=== PATIENT | female | born 1990 | race Caucasian/White ===

== ENCOUNTER → 2016-12-24 | Outpatient (CLI) | payer OTHER ==
--- NOTE | 2016-12-25 06:17 | PAP/PSG TECHNICIAN REPORT ---
[facility] [employer] Polysomnogram Report Study name: None Report date: 12/25/2016 Study date: 12/24/2016 Referring Physician: DR. ALPA QUINTANA Name: MAGO HAWKINS Interpreting Physician: Abhinav Ruiz D.O. Date of : 1990 Roulette Dealer: Neena Palmer RPSGT. Sex: Female Age: 26 Study Type: PSG Weight: 151 lbs Height: 26 years, Height 5' 4" BMI: 25.92 Medications: NONE REPORTED Patient History 26 yr-old here for a baseline study. She has a history of daytime sleepiness, insomnia, and PTSD. Her [place] scale is 0; however, she stated that she feels tired all day even though she does not fall asleep. The test was started on room air. ETCO2 testing was not utilized during this study. Room 3 Parameters Monitored NPSG: E1-M2, E2-M1, Fp1-M2, Fp2-M1, F3-M2, F4-M2, F4-M1, C3-M2, C4-M2, C4-M1, O1-M2, O2-M2, O2-M1, T3-M2, T4-M1, P3-M2, P4-M1, CHIN1, CHIN2, HR, EKG, Legs, PFLOW, SNOR, FLOW, CFLOW, Tidal Volume, THOR, ABDO, SpO2, PLTH, CPRESS, ETCO2 Wave, ETCO2, pH Sleep Architecture Sleep Stages Time at Lights Off 10:10:29 PM STAGES Time (min.) TST (%) Time at Lights On 5:46:59 AM Wake 229.5 -- Total Recording Time (TRT) 424.50 min. N1 27.5 14 Total Sleep Period (TSP) 326.5 min. N2 111.5 57 Total Sleep Time (TST) 195.0min. N3 31.0 16 Awake Time 229.5 min. REM 25.0 13 Wake after Sleep Onset 163.5 min. Sleep Efficiency (SE) 46 % Sleep Onset Latency (RAINER) 98.0 min. Number of Stage 1 Shifts None Awakenings 17 Stage Changes 59 Number of REM periods 1 REM 25.0 13 REM Latency 291.5 min. NREM 170.0 87 Body Position Analysis Supine Right Left Side Prone Vertical Total Sleep Time (min.) 159.1 122.3 23.3 145.64 0.0 3.3 Total Sleep Time (%) 25% 63% 12% 75 0% N/A% Total Sleep Time REM (min.) 0.0 25.0 0.0 None 0.0 0.0 Total Sleep Time NREM (min.) 49.4 97.3 23.3 None 0.0 0.0 Intermittent Wake (min.) 109.7 41.6 74.8 None 0.0 3.3 Total Sleep Period (%) 23% None None None None None Arousals Myoclonus (PLM) * Events Count Index Events Count Index Spontaneous 28 9 Events Awake (PLMW) 178 46.5 Respiratory 1 0.3 Events Asleep w/ Arousal (PLMA) 15 4.6 PLM 15 5 Events Asleep w/o Arousal (PLMS) 28 8.6 Snoring 4 1 Total Asleep 43 13.2 Total 48 15 Total 221 31 Respiratory Analysis * CA OA MA CH H RERA Total Count 0 0 0 0 0 1 0 Index 0.0 0.0 0.0 0 0.0 0 0.3 Mean Duration 0.0 0.0 0.0 0.00 0.0 19.0 19.0 Longest Duration 0.0 0.0 0.0 0.00 0.0 19.0 19.0 Respiratory Event Summary Total Supine ~Supine Right Left Prone REM NREM Apneas Count 0 0 0 0 0 N/A 0 0 Index 0.0 0 0 0.0 0.0 N/A 0 0 Hypopneas (4% Desat) Count 0 0 0 0 0 N/A 0 0 Index 0.0 0.0 0 0.0 0.0 N/A 0.0 0.0 Apneas & All Hypopneas Count 0 0 0 0 0 N/A 0 0 Index 0.0 0 0 0 0 N/A 0.0 0.0 Respiratory Events (Awning Hanger+All Hyp+RERA) Count 0 0 1 1 0 N/A 0 0 Index 0.3 0 0 0.5 0.0 N/A 2.4 0.0 Respiratory Related Arousal Count 1 0 1 1 0 N/A 1 0 Index 0.3 0 0 0 0 N/A 2 0 Snoring Analysis Supine Right Left Prone REM NREM Total Snore duration 1.6 min Snores count 1 19 4 N/A 5 19 24 Snore mean duration 3.9 Sec Snores index 1 9 10 N/A 12.0 6.7 7.4 TST with snoring (%) 0.8% Desaturation Event Summary: Minimum %SpO2 Event Count Mean/Min/Max Duration(sec.) Desaturation Index % Time In Bed > 90 4 42.5 / 21.3 / 53.8 0.6 100.0 86 - 90 0 N/A 0.0 0.0 81 - 85 0 N/A 0.0 0.0 76 - 80 0 N/A 0.0 0.0 71 - 75 0 N/A 0.0 0.0 66 - 70 0 N/A 0.0 0.0 61 - 65 0 N/A 0.0 0.0 56 - 60 0 N/A 0.0 0.0 51 - 55 0 N/A 0.0 0.0 < 50 0 N/A 0.0 0.0 Total REM NREM Awake <50% 0.0 min. 0.0 min. 0.0 min. 0.0 min. 51 - 60% 0.0 min. 0.0 min. 0.0 min. 0.0 min. 61 - 70% 0.0 min. 0.0 min. 0.0 min. 0.0 min. 71 - 80% 0.0 min. 0.0 min. 0.0 min. 0.0 min. 81 - 90% 0.2 min. 0.0 min. 0.0 min. 0.2 min. 91 - 100% 415.6 min. 25.0 min. 170.0 min. 220.6 min. Average 95 96 95 96 Minimum SpO2 83 95 92 83 Desaturation Event Index 0.6 0.0 0.4 0.8 # Desat. Events below 89% N/A N/A N/A N/A Time(%) with Saturation below 89% 0.0 0.0 0.0 0.0 Time(min.) with Saturation below 89% 0.1 0.0 0.0 0.1 Time (mins) REM (mins) NREM (mins) % of TST SpO2 Below 90% N/A N/A NN/A 0.0 SpO2 Below 88% 0 0 0 0 Heart Rate Analysis Min (bpm) Max (bpm) Average (bpm) Awake 34 127 41 NREM 34 69 40 REM 38 73 46 Overall 34 73 41 Supplemental O2 Values Minimum O2 level: None Value Start Time End Time [employer]er Comments Ms. Hawkins slept in the right, left, and supine positions. No cardiac arrhythmias or PLMs noted. No bruxism noted. No Snoring was reported. She used the restroom two times during the night. Ms. Hawkins stated that she slept poorly. The final report will be interpreted and signed by a sleep physician. The completed physician report will then be placed in the patient medical record. Therapy (cm H2O) 0 TIB (min.) 424.5 TST (min.) 195.0 Sleep Onset (min.) 98.0 REM Onset From Sleep (min.) 291.5 Sleep Efficiency % 46 Wakefulness (%) 50 Wakefulness (min.) 229.5 NREM 1 (%) 14 NREM 1 (min.) 27.5 NREM 2 (%) 57 NREM 2 (min.) 111.5 NREM 3 (%) 16 NREM 3 (min.) 31.0 REM (%) 13 REM (min.) 25.0 # Arousals 48 Arousal Index 15 # Snore 24 Snore Index 7.4 AHI 0.0 AHI Supine 0 AHI Non-Supine 0 NREM AHI 0.0 REM AHI 0.0 RDI 0.3 # Obstructive Apnea 0 # Central Apnea 0 # Mixed Apnea 0 # Hypopneas 0 RERAs 1 Total Respiratory Events 2 Time Below SpO2 89% (min.) 0.0 Mean NREM SpO2 (%) 95 Mean REM SpO2 (%) 96 Mean Sleep SpO2 (%) 95 Min NREM SpO2 (%) 92 Min REM SpO2 (%) 95 Position Supine (min.) 159.1 Position Non-supine (min.) 145.6 LM Index Sleep 13.2 LM Index NREM 13.4 LM Index REM 12.0 Mean Heart Rate (bpm) 41 Min Heart Rate (bpm) 34
--- NOTE | 2016-12-27 00:24 | POLYSOMNOGRAPH REPORT ---
REFERRING PHYSICIAN: Dr. Shayne Oliver. CLINICAL DATA: The patient is a 26-year-old female with a BMI of 25.92. She has a history of insomnia and observed apnea. This was an in-lab overnight sleep study. SLEEP ARCHITECTURE: The total sleep period was 358.5 minutes. The total sleep time was 227 minutes. Sleep efficiency was severely reduced to 50%. Sleep latency was prolonged to 98 minutes. Wake after sleep onset was prolonged to 131.5 minutes. There was only 1 REM period. The REM latency was prolonged to 291.5 minutes. Sleep consisted of stage N1 12%, stage N2 60%, stage N3 17%, stage REM 11%. AROUSAL DATA: The patient had a total of 48 arousals including 28 spontaneous, 1 respiratory, 15 PLMs, and 4 snoring arousals. The arousal index was 13. PLM DATA: The patient had a total of 46 periodic limb movements during sleep for an index of 12.2. There were 15 arousals, associated with limb movements for a PLM arousal index of 4.0. EKG: The underlying cardiac rhythm was sinus bradycardia. The cardiac rates ranged from 34-73 beats per minute. No arrhythmia was noted. RESPIRATORY DATA: The patient had no respiratory events. There was no central apnea, obstructive apnea, mixed apnea, or hypopneas. The apnea-hypopnea index was 0. She had 1 RERA. This study would suggest no sleep apnea. OXIMETRY DATA: The average saturation was 95%. The minimum saturation was 92%. There was 1 brief saturation reported of 83% that was technical and due to movement. ALUMNI RELATIONS COORDINATOR'S COMMENTS: The patient slept in the right, left, and supine positions. No cardiac arrhythmia or bruxism noted. No snoring was noted. She did have to use the restroom 2 times during the night. IMPRESSION: 1. Insomnia. 2. Periodic limb movement disorder. COMMENTS: The patient had a severe decrease in sleepy efficiency. She has a history of insomnia. Her sleep was somewhat poorly consolidated when she did sleep. She had a relatively mild number of limb movements with few arousals. She had no respiratory events at all. Oxygenation was normal. She did have bradycardia throughout much of the night. RECOMMENDATIONS: Followup is deferred to Dr. Oliver who referred the patient.
== END | disposition home or self-care (01) ==
LOC: C.NEUR 20:00
PROVIDERS: ATTEND Family Medicine
DX: G47.33 Obstructive sleep apnea (adult) (pediatric) (principal)